=== PATIENT | female | born 1970 | race Caucasian/White ===

== ENCOUNTER 2020-06-24 06:20 | Emergency (ER) | payer MEDICAID ==
[~2020-06-24] VITALS: Ht 175.3 cm; Wt 83.9 kg
[2020-06-24 06:24] VITALS: BP 148/98
--- NOTE | 2020-06-24 06:24 | NUR ---
to bed ambulatory
--- NOTE | 2020-06-24 06:30 | NUR ---
Urine sample collected.
--- NOTE | 2020-06-24 06:35 | NUR ---
49 y/o female presented to ED c/o pelvic pain x 1 night. Pt states she has been on her period for 3 weeks , which is not her norm. Pt states she has not had any pain until last night , pt describes pain as intense constant cramping 10/10. Pt states she had a large clot pass this morning. Pt states she has been changing up to 4 pads an hour. Abd round, soft and tender upon palpation of lower quadrants. Normoactive bowel sounds noted. Pt c/o nausea and dizziness. Pt denies SOB, CP , fever , body aches and chills. Pt placed in gown and on property assessment monitor w/ pulse ox and bp cuff. Bed is locked and in lowest position, HOB elevated, side rail x1. VSS. No acute distress noted. pmh: denies NKA
[2020-06-24] MEDS ORDERED: KETOROLAC 60 MG/2 ML VIAL IM ONE (06:40)
--- NOTE | 2020-06-24 06:50 | NUR ---
Lab at bedside.
[2020-06-24 06:56] LABS: BASOPHILS % (AUTO) 0.4 % (0.0-2.0); EOSINOPHILS # (AUTO) 0.1 K/uL (0-0.4); EOSINOPHILS % (AUTO) 1.1 % (0.0-4.0); HEMATOCRIT 35.1 % (36-48); LYMPHOCYTES # (AUTO) 1.1 K/uL (2.5-16.5); LYMPHOCYTES % (AUTO) 14.3 % (20.5-51.1); MEAN CORPUSCULAR HEMOGLOBIN 31 pg (27-31); MEAN CORPUSCULAR HGB CONC 34 g/dL (33-37); MEAN CORPUSCULAR VOLUME 91.1 fL (80-94); MONOCYTES # (AUTO) 0.5 K/uL (0.8-1.0); MONOCYTES % (AUTO) 6.5 % (1.7-9.3); NEUTROPHILS # (AUTO) 6.2 K/uL (1.8-7.7); NEUTROPHILS % (AUTO) 77.7 % (42.2-75.2); PLATELET COUNT (AUTO) 311 K/uL (140-450); RED BLOOD CELL COUNT(AUTO) 3.86 MIL/uL (4.20-5.40); RED CELL DISTRIBUTION WIDTH 13.2 % (11.6-13.7); WHITE BLOOD COUNT (AUTO) 7.9 K/uL (4.8-10.8)
[2020-06-24 07:01] LABS: APPEARANCE,URINE HAZY (CLEAR); BILIRUBIN,URINE NEGATIVE (NEGATIVE); BLOOD, URINE 3+ (NEGATIVE); COLOR,URINE ORANGE (YELLOW); LEUKOCYTE ESTERASE ,URINE TRACE (NEGATIVE); NITRITE, URINE NEGATIVE (NEGATIVE); PH,URINE 8.5 (5.0-9.0); UGLUCOSE NEGATIVE (NEGATIVE)
--- NOTE | 2020-06-24 07:02 | NUR ---
Pt c/o of no relief from medication administration, still rates pelvic pain 12/29. ERMD made aware. Per ERMD he will go to bedside and see pt.
[2020-06-24 07:04] LABS: WBC,URINE 0-5 /HPF (0-5)
--- NOTE | 2020-06-24 07:04 | NUR ---
ERMD at bedside for medical evaluation.
[2020-06-24 07:05] LABS: RBC,URINE >100 /HPF (0-5)
--- NOTE | 2020-06-24 07:17 | NUR ---
Report given to GERHARD Romero for transfer of care.
[2020-06-24 07:18] LABS: ALBUMIN 3.3 g/dL (3.4-5.0); CARBON DIOXIDE 22.6 mmol/L (21-32); CREATININE 0.9 mg/dL (0.6-1.3); POTASSIUM 3.6 mmol/L (3.5-5.1); TOTAL BILIRUBIN 0.2 mg/dL (0.0-1.0)
--- NOTE | 2020-06-24 07:24 | NUR ---
ULTRASOUND AT BEDSIDE
--- NOTE | 2020-06-24 08:10 | NUR ---
Dr. Villeda is reevaluating the patient at bedside.
[2020-06-24] MEDS ORDERED: MEDR10TA PO (08:18)
[2020-06-24] MEDS ORDERED: NAPR-54 PO (08:18)
--- NOTE | 2020-06-24 08:24 | NUR ---
PT STATES PELVIC PAIN FEELS MUCH BETTER AFTER MEDICATION
--- NOTE | 2020-06-24 08:25 | NUR ---
Patient discharged with v/s stable. Written and verbal after care instructions about abdominal pain, ovarian cyst, dysfunctional uterine bleeding given and explained. Patient alert, oriented and verbalized understanding of instructions. Ambulatory with steady gait. All questions addressed prior to discharge. ID band removed. Patient advised to follow up with PMD. Rx of naproxen, provera given. Patient educated on indication of medication including possible reaction and side effects. Opportunity to ask questions provided and answered.
[2020-06-24 08:26] VITALS: BP 148/98
[2020-06-25] MEDS ORDERED: NAPR-54 PO (03:54)
[2020-06-25] MEDS ORDERED: MEDR10TA PO (03:54)
== END 2020-06-24 08:25 | disposition home or self-care (01) ==
LOC: MED 06:20
DX: N83.201 Unspecified ovarian cyst, right side (principal); R03.0 Elevated blood-pressure reading, without diagnosis of hypertension; Z79.899 Other long term (current) drug therapy
CPT/HCPCS: 36415; 76830; 80053; 81001; 81025; 84443; 85025; 93976; 96372; 99284; J1885

== ENCOUNTER 2020-06-25 03:29 | Emergency (ER) | payer MEDICAID ==
[~2020-06-25] VITALS: Ht 172.7 cm; Wt 83.9 kg
[~2020-06-25 03:29] MED LIST: MEDR10TA PO; NAPR-54 PO
[2020-06-25 03:34] VITALS: BP 138/90
--- NOTE | 2020-06-25 03:42 | NUR ---
ERMD AT BEDSIDE PERFORMING ASSESSMENT.
[2020-06-25] MEDS ORDERED: MEDR10TA PO (03:54)
[2020-06-25] MEDS ORDERED: NAPR-54 PO (03:54)
[2020-06-25 04:03] VITALS: BP 138/90
--- NOTE | 2020-06-25 04:03 | NUR ---
PATIENT ASSESSED, TREATED AND DISCHARGED BY ERMD. NO NURSING INTERVENTIONS NEEDED.
== END 2020-06-25 04:03 | disposition home or self-care (01) ==
LOC: MED 03:29
DX: N93.8 Other specified abnormal uterine and vaginal bleeding (principal); Z79.899 Other long term (current) drug therapy
CPT/HCPCS: 99283

== ENCOUNTER 2021-09-23 17:50 | Emergency (ER) | payer MEDICAID ==
[~2021-09-23] VITALS: Ht 175.3 cm; Wt 82.6 kg
[2021-09-23 17:52] VITALS: BP 132/82
[2021-09-23] MEDS ORDERED: DOXYCYCLINE 100 MG CAP PO STA (18:06)
[2021-09-23] MEDS ORDERED: DOXY-487 PO (18:11)
[2021-09-23] MEDS ORDERED: CEPH-588 PO (18:23)
[2021-09-23 18:39] LABS: BASOPHILS % (AUTO) 0.9 % (0.0-2.0); EOSINOPHILS # (AUTO) 0.1 K/uL (0-0.4); EOSINOPHILS % (AUTO) 1.5 % (0.0-4.0); HEMATOCRIT 38.9 % (36-48); HEMOGLOBIN 13.3 g/dL (12.0-16.0); LYMPHOCYTES # (AUTO) 1.1 K/uL (2.5-16.5); LYMPHOCYTES % (AUTO) 22.3 % (20.5-51.1); MEAN CORPUSCULAR HEMOGLOBIN 31 pg (27-31); MEAN CORPUSCULAR HGB CONC 34 g/dL (33-37); MEAN CORPUSCULAR VOLUME 90.6 fL (80-94); MONOCYTES # (AUTO) 0.6 K/uL (0.8-1.0); MONOCYTES % (AUTO) 11.5 % (1.7-9.3); NEUTROPHILS # (AUTO) 3.3 K/uL (1.8-7.7); NEUTROPHILS % (AUTO) 63.8 % (42.2-75.2); PLATELET COUNT (AUTO) 286 K/uL (140-450); RED CELL DISTRIBUTION WIDTH 13.4 % (11.6-13.7); WHITE BLOOD COUNT (AUTO) 5.1 K/uL (4.8-10.8)
[2021-09-23 19:04] LABS: ANION GAP 8.9 (8-16); CARBON DIOXIDE 30.9 mmol/L (21-32); CREATININE 0.7 mg/dL (0.6-1.3); POTASSIUM 3.8 mmol/L (3.5-5.1)
[2021-09-23] MEDS ORDERED: DOXYCYCLINE 100 MG CAP ONE (19:12)
--- NOTE | 2021-09-23 19:15 | NUR ---
MEDICATED PER PA, TOLERATED WELL.
[2021-09-23 20:10] VITALS: BP 120/79
--- NOTE | 2021-09-23 20:10 | NUR ---
Patient discharged with out after care instructions. .
== END 2021-09-23 20:10 | disposition home or self-care (01) ==
LOC: MED 17:50
DX: Z20.2 Contact with and (suspected) exposure to infections with a predominantly sexual mode of transmission (principal); Z79.899 Other long term (current) drug therapy
CPT/HCPCS: 36415; 80048; 81002; 81025; 85025; 86592; 86694; 87491; 87529; 99283